=== PATIENT | female | born 1985 | race Two or more races ===

== ENCOUNTER 2018-12-03 12:10 | Observation (INO) | payer BC, SELFPAY ==
[2018-12-03 12:11] VITALS: BP 139/85; PULSE 105; RESP 18; TEMP 36.7; O2SAT 98; BMI 27.6
--- NOTE | 2018-12-03 12:35 | CT_ITS ---
STUDY: CTA OF THE BRAIN REASON FOR EXAM: Female, 33 years old. Migraine headaches. Anxiety. RADIATION DOSAGE (If Supplied By Facility): CTDIvol = ( 23.77 ) mGy, DLP = ( 1566.70 ) mGycm TECHNIQUE: CT angiography was performed with a multi-detector CT scanner. Data acquisition was obtained from the skull base through the vertex following intravenous administration of 100 IV Isovue 370. MIP images were reconstructed from the axial data set. Post-processing of the angiographic images was performed, with multiplanar reformation and 3D reconstruction. Individualized dose optimization techniques were used for this CT. COMPARISON: None. FINDINGS: Normal bilateral petrous carotid arteries. Normal right cavernous carotid artery with a normal supraclinoid bifurcation. Normal left cavernous carotid artery with a normal supraclinoid bifurcation. Normal right A1 segments of the anterior cerebral artery. Normal left A1 segments of the anterior cerebral artery. Normal intact anterior communicating artery (ACOM). Normal bilateral A2 segments of the anterior cerebral arteries. There is irregularity of the right M1 and M2 branches with minimal luminal narrowing, suggesting atherosclerotic plaque formation, without an occlusion. There is irregularity of the left M1 and M2 branches with minimal luminal narrowing, suggesting atherosclerotic plaque formation, without an occlusion. Normal right posterior communicating artery (PCOM). Normal left posterior communicating artery (PCOM). Normal bilateral vertebral arteries. Normal basilar artery with a normal basilar bifurcation. The visualized bilateral superior cerebellar (SCA) arteries are normal. Normal bilateral P1, P2 and visualized P3 segments of the posterior cerebral arteries. There is no demonstrated aneurysm of the [place]. There is no demonstrated abnormality of the visualized brain. CT/CTA Head W/WO Contrast IMPRESSION: Narrowing and irregularity seen involving the right and left M1 and M2 branches of the middle cerebral arteries. Electronically Signed: Cain Mccann, at 14:04 EDT , Service support ,
--- NOTE | 2018-12-03 12:35 | CT_ITS ---
STUDY: CTA NECK WITH CONTRAST REASON FOR EXAM: Female, 33 years old. History of migraine headaches and anxiety. RADIATION DOSAGE (If Supplied By Facility): CTDIvol = ( 23.77 ) mGy, DLP = ( 1566.7 ) mGycm TECHNIQUE: CT angiography with multi-detector data acquisition was performed from the aortic arch to the skull base following intravenous administration of 100 IV Isovue 370. MIP images were reconstructed from the axial data set. Post-processing of the angiographic images was performed, with multiplanar reformation and 3D reconstruction. Individualized dose optimization techniques were used for this CT. COMPARISON: None. FINDINGS: AORTIC ARCH: Normal visualized aortic arch. Normal origins of the brachiocephalic, left common carotid, and left subclavian arteries. RIGHT CAROTID ARTERIES: Normal right common carotid artery (CCA). Normal right common carotid bulb. Normal origin of the right internal carotid (ICA) artery without a hemodynamically significant stenosis. Normal visualized cervical portion of the right internal carotid artery. Normal origin of the right external carotid artery (ECA). LEFT CAROTID ARTERIES: Normal left common carotid artery (CCA). Normal left common carotid bulb. Normal origin of the left internal carotid (ICA) artery without a hemodynamically significant stenosis. Normal visualized cervical portion of the left internal carotid artery. Normal origin of the left external carotid artery (ECA). VERTEBRAL ARTERIES: There is enhancement within the bilateral vertebral arteries with a small left vertebral artery, and a dominant right vertebral artery. CT/CTA Neck W/WO Contrast IMPRESSION: Normal bilateral cervical carotid and vertebral arteries. Electronically Signed: Cain Mccann, at 14:26 EDT , Service support ,
[2018-12-03] MEDS: 0.9% Normal Saline 1,000 ML 1000 ML IV (13:01)
[2018-12-03] MEDS: DiphenhydrAMINE 50 MG/ML Syringe 25 MG IV (13:01)
[2018-12-03] MEDS: Metoclopramide 10 MG/2 ML Vial IV (13:01)
--- NOTE | 2018-12-03 14:46 | ED.VISSUMM ---
- ER Visit Summary Date of Service: 12/03/18 Chief Complaint: [Headache] History of Present Illness: The patient is a 33 F [presents the emergency room with a headache that started about an hour ago. Patient states the pain came on suddenly and was like a lightening bolt back of her head. Patient has intermittent sharp stabbing pains like a knife in the back of her head. Patient had some nausea but no vomiting. She does have some mild photophobia. Patient also states she had a headache yesterday felt more like a migraine. Patient patient denies any falls or head injuries. Patient is never had a headache like this before. And she rates it as a 6 or 7 out of 10. It was much worse initially. Patient has a family history of brain aneurysms and that her mother has had brain aneurysms.] Physical Examination: [HEENT-PERRLA, EOMI. Cranial nerves II through XII grossly intact. TMs clear. Mucous membranes moist. No adenopathy. Cardiovascular-regular rate and rhythm without murmur or ectopy Lungs-clear to auscultation, chest wall stable without crepitus or subcu emphysema Abdomen-normoactive bowel sounds, soft, nontender, no rebound or rigidity, no peritoneal signs. Neuro mlgg-[id number] and heel flores testing within normal limits, negative Romberg, negative pronator, fundi benign Extremities-intact ?4, normal range of motion, normal pulses, atraumatic] Test Results: [CTA of the brain obtained was read by radiology as narrowing and irregularity seen involving the right and left M1 and M2 branches of the middle cerebral arteries. No aneurysms noted. CTA of the neck was normal. Emergency Department Course and Treatment: [Patient was medicated with Reglan, and Benadryl, and normal saline. Patient had improvement in her headache and she currently describes it as mild. Case was discussed with neurology on-call Dr. Connors who recommended obtaining some blood work and admitting the patient for further work-up and evaluation given patient's young age there was concern as to whether or not the findings on the CTA represent atherosclerosis versus vasculitis.] Treatment Plan: [Admit] Disposition: [Admit] Impression: [Cephalgia] This note was generated with [employer] software. It may contain incorrect words, spelling, and punctuation that were not noted in review of the chart prior to signing ED Disposition - Plan for ED Patient: Referrals: Darien Fernandez MD [Primary Care Provider] -
--- NOTE | 2018-12-03 14:52 | ED.DCSUM_ITS ---
- ER Visit Summary Date of Service: 12/03/18 Chief Complaint: [Headache] History of Present Illness: The patient is a 33 F [presents the emergency room with a headache that started about an hour ago. Patient states the pain came on suddenly and was like a lightening bolt back of her head. Patient has inte rmittent sharp stabbing pains like a knife in the back of her head. Patient had some nausea but no vomiting. She does have some mild photophobia. Patient also states she had a headache yesterday felt more like a migraine. Patient patient denies any falls or head injuries. Patient is never had a headache like this before. And she rates it as a 6 or 7 out of 10. It was much worse initially. Patient has a family history of brain aneurysms and that her mother has had brain aneurysms.] Physical Examination: [HEENT-PERRLA, EOMI. Cranial nerves II through XII grossly intact. TMs clear. Mucous membranes moist. No adenopathy. Cardiovascular-regular rate and rhythm without murmur or ectopy Lungs-clear to auscultation, chest wall stable without crepitus or subcu em physema Abdomen-normoactive bowel sounds, soft, nontender, no rebound or rigidity, no peritoneal signs. Neuro xzoe-bgkvue-zilb and heel flores testing within normal limits, negative Romberg, negative pronator, fundi benign Extremities-intact ?4, normal range of motion, normal pulses, atraumatic] Test Results: [CTA of the brain obtained was read by radiology as narrowing and irregularity seen involving the right and left M1 and M2 branches of the middle cerebral arteries. No aneurysms noted. CTA of the neck was normal. Emergency Department Course and Treatment: [Patient was medicated with Reglan, and Benadryl, and normal saline. Patient had improvement in her headache and she currently describes it as mild. Case was discussed with neurology on-call Dr. Connors who recommended obtaining some blood work and admitting the patient for further work-up and evaluation given patient's young age there was concern as to whether or not the findings on the CTA represent atherosclerosis versus vasculitis.] Treatment Plan: [Admit] Disposition: [Admit] Impression: [Cephalgia] This note was generated with [employer] dictation software. It may contain incorrect words, spelling, and punctuation that were not noted in review of the chart prior to signing ED Disposition - Plan for ED Patient: Referrals: Darien Fernandez MD [Primary Care Provider] -
--- NOTE | 2018-12-03 14:56 | ED.RN ---
Addendum entered by Buffy Keller 12/03/18 14:57: [phone] Original Note: called pt's friend, Corrie, to inform of pt getting admitted to the hospital.
--- NOTE | 2018-12-03 15:00 | HP.PCM_ITS ---
Problem List (1) Headache Status: Acute History of Present Illness Date of Admission: 12/03/18 Chief Complaint: Headache The patient is a 33 year old F past medical history presents with headache that is started about an hour prior to her arrival to the ER. She states that she has a history of migraines but this is worse than any migraine she has had. Usually her migraines are in the front and throbbing. She was having intermittent stabbing pains in the back of her head and she was concerned because her family has a history of aneurysms in her mother and at one point one blood and then they found a second aneurysm that needed to be clipped. She did not have any auras or any visual issues during the headache just the severe pain. She denies any numbness, tingling, or weakness in her extremities. In the ER a CT of the head and neck was obtained that showed some irregularities and narrowing in the right and left M1 and M2 branches of the MCA, but no sign of a bleed or aneurysm. The ER discussed the case with neurology who would like the patient be admitted for observation to work-up for possible vasculitis. Vital signs are unremarkable and no lab work was completed in the ER prior to admission. Past Medical History Allergies No Known Allergies Allergy (Unverified 03/28/18 12:30) Home Medications: Ambulatory Orders Medication Instructions Recorded Qlaira 1 tab PO DAILY 12/03/18 Sumatriptan Succinate [Imitrex] 50 mg PO .X1 PRN 12/03/18 Surgical History: tonsillectomy Smoking Status: Never smoker Alcohol: None Drugs: None - *Family History Maternal History Items: Stroke - Hemorrhagic secondary to aneurysm, - - Cerebral aneurysm Paternal History Items: Heart Disease Review of Systems Constitutional: Denies: Chills, Fever, Weight Change HEENT: Reports: Head Aches. Denies: Sinus Congestion, Sinus Drainage Cardiovascular: Denies: Chest Pain, Palpitations Respiratory: Denies: Cough, Shortness of breath at rest, Sputum production Gastrointestinal: Denies: Abdominal Pain, Nausea, Vomiting Genitourinary: Denies: Dysuria Musculoskeletal: Denies: Joint Pain, Joint Tenderness Skin: Denies: Rash, Wounds Neurological: Denies: Numbness, Tingling, Focal weakness Psychiatric: Denies: Anxiety, Depression Hematologic/ Lymphatic: Denies: Easy Bruising, Easy Bleeding VTE Information - Inpt Only VTE Present on Admission: No Patient Problems: Active and Suspected Problems Headache (Acute) - Physical Exam General: Alert, Oriented x3, Cooperative, No apparent distress HEENT: Atraumatic, PERRLA, EOMI, Normocephalic Oral: Moist Mucosa Neck: Supple, No JVD Lungs: Clear to auscultation, Normal air movement, No rhonchi, No wheeze, No rales Cardiovascular: Regular rate, Regular Rhythm, Normal S1, Normal S2, No murmurs Abdomen: Soft, Non Tender, Non-Distended, No Hepato-splenomegaly Extremities: No edema, Capillary Refill Less than 3 Seconds Skin: No rashes, No breakdown Neurological: Neuro grossly intact, Sensory exam intact to light touch and pain Psych/Mental Status: Normal Affect, Appropriate Vital Signs Temp Pulse Resp BP Pulse Ox 98.1 F 105 H 18 139/85 H 98 12/03/18 12:11 12/03/18 12:11 12/03/18 12:11 12/03/18 12:11 12/03/18 12:11 Oxygen Delivery Method Room Air Weight: 171 lb 8.314 oz Body Mass Index (BMI) 27.6 Assessment/Plan All Active Problems Headache (Acute) Bedbug bite (Acute) 1. Significant headache with a history of migraines -Neurology is concerned with the possibility of a vasculitis -CTA of the head and neck showed irregularities and narrowing in the right and left M1 and M2 branch of the MCA -No signs of aneurysms or head bleed -Neurology will obtain further inflammatory labs, and a CBC, BMP, and ESR pen ding -Also will obtain an MRI -Neurology also plans on doing a trial of Depakote 500 mg IV every 8 as well as Decadron 4 mg IV every 6 -Plan will be for discharge if everything else is normal tomorrow DVT: Ambulation Code Visit OBSV E&M: 66340 Initial observation care L2
[2018-12-03 15:06] LABS: Absolute Lymphocyte Count 4.54 X10^3/ul (0.83-4.51); Absolute Neutrophil Count 3.8 X10^3/uL (2.0-7.7); Basophil# 0.02 X10^3/uL; Basophil% 0.2 % (0-1); Eosinophil# 0.04 X10^3/uL; Eosinophils% 0.4 % (0-5); Hematocrit 41.4 % (37-47); Hemoglobin 14.4 g/dl (12.0-15.0); Lymphocyte # 4.54 X10^3/ul (4.0); Lymphocyte % 49.7 % (19-41); Mean Corp Hgb Conc 34.8 g/gl (32-36); Mean Corpuscular Hgb 31.2 pg (27.0-32.0); Mean Corpuscular Volume 89.6 fL (81-99); Mean Platelet Vol. 9.4 fl (6.2-12.0); Monocyte# 0.72 X10^3/uL; Monocyte% 7.9 % (0-10); Neutrophil % 41.7 % (47-70); Platelet Count 301 K/mm3 (150-450); RBC Distribution Width CV 12.6 % (11.6-14.6); Red Blood Count 4.62 M/mm3 (4.2-5.4); White Blood Count 9.1 K/mm3 (4.4-11.0)
[2018-12-03 15:07] VITALS: BMI 27.7
[2018-12-03 15:07] LABS: POSITIVE COUNT NO; POSITIVE DIFFERENTIAL NO; POSITIVE MORPHOLOGY NO
--- NOTE | 2018-12-03 15:17 | CON.PCM_ITS ---
Problem List (1) Headache Status: Acute Reason for Consult Date of Consultation: 12/03/18 Reason for Consultation: Headache History of Present Illness: The patient is a 33 year old F with PMH migraines admitted with headache. Per patient she started having her headache this afternoon 12/03/2018, with a sharp stabbing in the occipital region lasting hours, was different from her usual migraine headaches. Per patient when she gets her migraine headaches its generalized, on the vertex, about once a month, lasting hours, associated with photophobia and phonophobia, without any visual aura, does complain of nausea, has been on as needed medication probably Imitrex per patient. At present patient denies any speech disturbances, visual disturbances, focal motor weakness, sensory loss or dizziness. CTA head/neck done on admission reported to show irregularity of the right M1 and M2 branches with minimal luminal narrowing, suggesting atherosclerotic plaque formation without any occlusion, and also irregularity in the left M1 and M2 branches of the minimal luminal narrowing suggesting atherosclerotic plaque formation without any occlusion. [] Past Medical History Allergies No Known Allergies Allergy (Unverified 03/28/18 12:30) Home Medications: Ambulatory Orders Medication Instructions Recorded Qlaira 1 tab PO DAILY 12/03/18 Sumatriptan Succinate [Imitrex] 50 mg PO .X1 PRN 12/03/18 Lives: Alone Smoking Status: Never smoker Tobacco Use: Non-smoker Alcohol: Rare, Sober Drugs: None Review of Systems Constitutional: Reports: - - Complete ROS negative except as documented in HPI Patient Problems: Active and Suspected Problems Headache (Acute) - Physical Exam General: Alert HEENT: Normocephalic Neck: Supple Lungs: Normal air movement Cardiovascular: Normal S1, Normal S2 Abdomen: Bowel Sounds Present Extremities: No cyanosis Neurological: - - Conscious, alert, CN II to XII grossly intact, power 5/5 all 4 extremities, no sensory loss, no cerebellar signs, reflexes+ B/L B/S/T/K/A, gait deferred, no NR, fundus not visualized Psych/Mental Status: Normal Affect Vital Signs Temp Pulse Resp BP Pulse Ox 98.1 F 105 H 18 139/85 H 98 12/03/18 12:11 12/03/18 12:11 12/03/18 12:11 12/03/18 12:11 12/03/18 12:11 Oxygen Delivery Method Room Air Weight: 77.8 kg Body Mass Index (BMI) 27.6 Laboratory Tests Past 24 Hrs 12/03/18 12/03/18 12:47 12:47 WBC 9.1 RBC 4.62 Hgb 14.4 Hct 41.4 MCV 89.6 MCH 31.2 MCHC 34.8 RDW 12.6 RDW Differential 41.0 Plt Count 301 MPV 9.4 Immature Gran % (Auto) 0.100 Neut % (Auto) 41.7 L Lymph % (Auto) 49.7 H Victoria % (Auto) 7.9 Eos % (Auto) 0.4 Baso % (Auto) 0.2 Absolute Neuts (auto) 3.8 Absolute Lymphs (auto) 4.54 H Total Counted Not Reportable ESR Pending Sodium Pending Potassium Pending Chloride Pending Carbon Dioxide Pending Anion Gap Pending BUN Pending Creatinine Pending Est GFR (MDRD) Af Amer Pending Est GFR (MDRD) Non-Af Pending BUN/Creatinine Ratio Pending Glucose Pending Calcium Pending Total Bilirubin Pending AST Pending ALT Pending Alkaline Phosphatase Pending Total Protein Pending Albumin Pending Assessment/Plan All Active Problems Headache (Acute) Bedbug bite (Acute) The patient is a 33 year old F with PMH migraines admitted with headache. Per patient she started having her headache this afternoon 12/03/2018, with a sharp stabbing in the occipital region lasting hours, was different from her usual migraine headaches. Per patient when she gets her migraine headaches its generalized, on the vertex, about once a month, lasting hours, associated with photophobia and phonophobia, without any visual aura, does complain of nausea, has been on as needed medication probably Imitrex per patient. At present patient denies any speech disturbances, visual disturbances, focal motor weakness, sensory loss or dizziness. CTA head/neck done on admission reported to show irregularity of the right M1 and M2 branches with minimal luminal narrowing, suggesting atherosclerotic plaque formation without any occlusion, and also irregularity in the left M1 and M2 branches of the minimal luminal marlon rowing suggesting atherosclerotic plaque formation without any occlusion. Impression Headache?change in characteristics from her migraine headaches per patient Possible status migrainosus Plan ?Check MRI brain without contrast ?ESR, CRP, JARED, ANCA. ?Trial of Depacon 500 mg IV every 8 hourly for 24 to 48 hours and then stop ?Trial of Decadron 4 mg IV every 6 hourly for 24 to 48 hours and then stop ?Magnesium sulfate 1 g IV once ?Trial of Toradol 30 mg IV every 6 hourly as needed moderate to severe headache, for 24 hours and then stop. ?GI/DVT prophylaxis ?Fall precautions ?Further medical management per hospitalist team ?Please call with questions if any ?Follow-up with neurology as outpatient in 6 weeks ?Thank you for allowing us to participate in patient's current management Code Visit Inpatient E&M: 10915 Init Hosp L3
--- NOTE | 2018-12-03 15:24 | MRI_ITS ---
STUDY: MRI BRAIN WITHOUT CONTRAST REASON FOR EXAM: Female, 33 years old. Headache TECHNIQUE: Standardized multiplanar fat and water weighted pulse sequences were obtained. COMPARISON: CT head same day. FINDINGS: Normal size of the ventricles and extra-axial spaces for the patient's age. Normal white matter tracts of the supratentorial brain. Normal bilateral basal ganglia. Normal thalami. There is no extra-axial fluid accumulation. The diffusion-weighted sequence is normal. Normal flow voids within the major intracranial circulation suggesting patency by spin echo criteria. Normal sella turcica, pituitary gland, infundibular stalk, optic chiasm and hypothalamus. Normal tectal plate and pineal gland. Normal midbrain, christel and medulla. Normal cerebellum. Normal basal cisterns. Normal bilateral temporal bones. Normal bilateral internal auditory canals. No demonstrated orbital abnormality, within the constraints of a routine brain study. Normal visualized paranasal sinuses. Normal calvarium and skull base. Normal visualized soft tissue structures. Normal visualized upper cervical spine. MRI/Brain without Contrast IMPRESSION: Normal unenhanced MRI of the brain. Electronically Signed: Rufus Hunt, at 0:10 EDT Tel , Service support ,
[2018-12-03 15:26] VITALS: BP 123/90; PULSE 89; RESP 17; O2SAT 97
[2018-12-03 15:30] LABS: AST(SGOT) 16 U/L (15-37); Alanine Aminotransfer ALT/SGPT 29 U/L (13-56); Alkaline Phosphatase 64 U/L (45-117); Anion Gap 11 (5-15); BUN 9 mg/dL (7-18); BUN/Creat Ratio 11.8 RATIO (10-20); Calcium,Total 8.6 mg/dL (8.5-10.1); Chloride 107 mmol/L (98-107); Creatinine, Serum 0.76 mg/dL (0.55-1.02); EST Glomerular Filtration Rate 91 mL/min (>60); Est Glom Filt Rate - Afr Amer 110 mL/min (>60); Estimated Creatinine Clearance 96.72 ml/min; Globulin 4.1 g/dL (2.2-4.2); Glucose 106 mg/dL (74-106); Potassium 3.3 mmol/L (3.5-5.1); Protein, Total 8.1 g/dL (6.4-8.2); Sodium Level 141 mmol/L (136-145)
[2018-12-03 15:35] LABS: Erythrocyte Sedimentation Rate 10 mm/hr (0-20)
[2018-12-03 16:02] LABS: Erythrocyte Sedimentation Rate 2 mm/hr (0-20)
[2018-12-03 16:04] LABS: CRP 3.78 mg/L (0.0-3.0); Rheumatoid Factor < 10.0 IU/mL (<15)
[2018-12-03 16:05] VITALS: BMI 27.3
[2018-12-03 16:06] VITALS: BP 124/84; PULSE 83; RESP 14; TEMP 37.1; O2SAT 98
[2018-12-03] MEDS: Magnesium Sulfate 1 GM in 0.9% Normal Saline 100 ML IV (19:13)
[2018-12-03] MEDS: 0.9% NaCl Peripheral Flush Adult/Peds IV (19:14)
[2018-12-03] MEDS: 0.9% Normal Saline 1,000 ML 100 ML IV (19:14)
[2018-12-03] MEDS: dexAMETHasone 4 MG/ML Vial IV (21:04)
[2018-12-03 22:00] VITALS: BP 127/81; PULSE 96; RESP 16; TEMP 36.9; O2SAT 98
[2018-12-04] MEDS: dexAMETHasone 4 MG/ML Vial IV ×3 (00:33→11:18)
[2018-12-04 04:00] VITALS: BP 109/74; PULSE 82; RESP 16; TEMP 36.9; O2SAT 100
[2018-12-04 06:02] LABS: Absolute Lymphocyte Count 1.25 X10^3/ul (0.83-4.51); Absolute Neutrophil Count 3.8 X10^3/uL (2.0-7.7); Hematocrit 42.6 % (37-47); Hemoglobin 14.8 g/dl (12.0-15.0); Lymphocyte # 1.25 X10^3/ul (4.0); Lymphocyte % 24.6 % (19-41); Mean Corp Hgb Conc 34.7 g/gl (32-36); Mean Corpuscular Volume 89.3 fL (81-99); Mean Platelet Vol. 9.6 fl (6.2-12.0); Monocyte# 0.05 X10^3/uL; Neutrophil # 3.79 X10^3/uL (2.7-7.7); Neutrophil % 74.4 % (47-70); Platelet Count 278 K/mm3 (150-450); RBC Distribution Width CV 12.3 % (11.6-14.6); RBC Distribution Width SD 40.1 fl (35.1-43.9); Red Blood Count 4.77 M/mm3 (4.2-5.4); White Blood Count 5.1 K/mm3 (4.4-11.0)
[2018-12-04 06:07] LABS: POSITIVE COUNT NO; POSITIVE DIFFERENTIAL NO; POSITIVE MORPHOLOGY NO
[2018-12-04] MEDS: 0.9% Normal Saline 1,000 ML 100 ML IV (06:07)
[2018-12-04 06:08] LABS: Anion Gap 10 (5-15); BUN 8 mg/dL (7-18); BUN/Creat Ratio 9.9 RATIO (10-20); Calcium,Total 8.5 mg/dL (8.5-10.1); Chloride 108 mmol/L (98-107); EST Glomerular Filtration Rate 86 mL/min (>60); Est Glom Filt Rate - Afr Amer 104 mL/min (>60); Estimated Creatinine Clearance 91.88 ml/min; Glucose 135 mg/dL (74-106); Potassium 4.3 mmol/L (3.5-5.1); Sodium Level 139 mmol/L (136-145)
--- NOTE | 2018-12-04 09:27 | PN.NEURO_ITS ---
Subjective: No issues overnight. Denies any REYES at present. Care discussed with hospitalist taking care of the patient - Physical Exam General: Alert HEENT: Normocephalic Neck: Supple Lungs: Normal air movement Cardiovascular: Normal S1, Normal S2 Abdomen: Bowel Sounds Present Extremities: No cyanosis Neurological: - - Conscious, alert, CN II to XII grossly intact, power 5/5 all 4 extremities, no sensory loss, no cerebellar signs, reflexes+ B/L B/S/T/K/A, gait deferred, no NR, fundus not visualized Psych/Mental Status: Normal Affect Vital Signs Temp Pulse Resp BP Pulse Ox 98.4 F 82 16 109/74 100 12/04/18 04:00 12/04/18 04:00 12/04/18 04:00 12/04/18 04:00 12/04/18 04:00 Oxygen Delivery Method Room Air Weight: 77.111 kg Body Mass Index (BMI) 27.3 Intake and Output for Last 24 Hours 12/02/18 12/03/18 12/04/18 23:59 23:59 23:59 Intake Total 1987 Balance 1987 Laboratory Tests Past 24 Hrs 12/03/18 12/03/18 12/03/18 12:47 12:47 15:35 WBC 9.1 RBC 4.62 Hgb 14.4 Hct 41.4 MCV 89.6 MCH 31.2 MCHC 34.8 RDW 12.6 RDW Differential 41.0 Plt Count 301 MPV 9.4 Immature Gran % (Auto) 0.100 Neut % (Auto) 41.7 L Lymph % (Auto) 49.7 H [place] % (Auto) 7.9 Eos % (Auto) 0.4 Baso % (Auto) 0.2 Absolute Neuts (auto) 3.8 Absolute Lymphs (auto) 4.54 H Total Counted Not Reportable ESR 10 2 Sodium 141 Potassium 3.3 L Chloride 107 Carbon Dioxide 23.0 Anion Gap 11 BUN 9 Creatinine 0.76 Estim Creat Clear Calc 96.72 Est GFR (MDRD) Af Amer 110 Est GFR (MDRD) Non-Af 91 BUN/Creatinine Ratio 11.8 Glucose 106 Calcium 8.6 Total Bilirubin 0.40 AST 16 ALT 29 Alkaline Phosphatase 64 C-React Prot Ext Range Total Protein 8.1 Albumin 4.0 Globulin 4.1 Albumin/Globulin Ratio 1.0 Rheumatoid Factor JARED Screen c-ANCA Antibody p-ANCA Antibody GRADY-1 Antibody SS-A/Ro IgG Antibody SS-B/La IgG Antibody Sm (Wells) Antibody SUP[employer]Y AND DISTRIBUTION MANAGER Antibody Scl-70 Scleroderma Ab Double Strand DNA Ab Centromere B Antibody 12/03/18 12/03/18 12/03/18 15:35 15:35 15:35 WBC RBC Hgb Hct MCV MCH MCHC RDW RDW Differential Plt Count MPV Immature Gran % (Auto) Neut % (Auto) Lymph % (Auto) [place] % (Auto) Eos % (Auto) Baso % (Auto) Absolute Neuts (auto) Absolute Lymphs (auto) Total Counted ESR Sodium Potassium Chloride Carbon Dioxide Anion Gap BUN Creatinine Estim Creat Clear Calc Est GFR (MDRD) Af Amer Est GFR (MDRD) Non-Af BUN/Creatinine Ratio Glucose Calcium Total Bilirubin AST ALT Alkaline Phosphatase C-React Prot Ext Range 3.78 H Total Protein Albumin Globulin Albumin/Globulin Ratio Rheumatoid Factor < 10.0 JARED Screen Pending c-ANCA Antibody Pending p-ANCA Antibody Pending GRADY-1 Antibody Pending SS-A/Ro IgG Antibody Pending SS-B/La IgG Antibody Pending Sm (Wells) Antibody Pending SUPPLY AND DISTRIBUTION MANAGER Antibody Pending Scl-70 Scleroderma Ab Pending Double Strand DNA Ab Pending Centromere B Antibody Pending 12/04/18 12/04/18 05:20 05:20 WBC 5.1 RBC 4.77 Hgb 14.8 Hct 42.6 MCV 89.3 MCH 31.0 MCHC 34.7 RDW 12.3 RDW Differential 40.1 Plt Count 278 MPV 9.6 Immature Gran % (Auto) 0.000 Neut % (Auto) 74.4 H Lymph % (Auto) 24.6 [place] % (Auto) 1.0 Eos % (Auto) 0.0 Baso % (Auto) 0.0 Absolute Neuts (auto) 3.8 Absolute Lymphs (auto) 1.25 Total Counted Not Reportable ESR Sodium 139 Potassium 4.3 Chloride 108 H Carbon Dioxide 21.0 Anion Gap 10 BUN 8 Creatinine 0.80 Estim Creat Clear Calc 91.88 Est GFR (MDRD) Af Amer 104 Est GFR (MDRD) Non-Af 86 BUN/Creatinine Ratio 9.9 L Glucose 135 H Calcium 8.5 Total Bilirubin AST ALT Alkaline Phosphatase C-React Prot Ext Range Total Protein Albumin Globulin Albumin/Globulin Ratio Rheumatoid Factor JARED Screen c-ANCA Antibody p-ANCA Antibody GRADY-1 Antibody SS-A/Ro IgG Antibody SS-B/La IgG Antibody Sm ([place]) Antibody SUPPLY AND DISTRIBUTION MANAGER Antibody Scl-70 Scleroderma Ab Double Strand DNA Ab Centromere B Antibody Medical Necessity - Tobacco Use Smoking Status: Never smoker Tobacco Use: Non-smoker Assessment/Plan All Active Problems Headache (Acute) Bedbug bite (Acute) The patient is a 33 year old F with PMH migraines admitted with headache. Per patient she started having her headache the afternoon of 12/03/2018, with a sharp stabbing in the occipital region lasting hours, was different from her usual migraine headaches. Per patient when she gets her migraine headaches its generalized, on the vertex, about once a month, lasting hours, associated with photophobia and phonophobia, without any visual aura, does complain of nausea, h as been on as needed medication probably Imitrex per patient. At present patient denies any speech disturbances, visual disturbances, focal motor weakness, sensory loss or dizziness. CTA head/neck done on admission reported to show irregularity of the right M1 and M2 branches with minimal luminal narrowing, suggesting atherosclerotic plaque formation without any occlusion, and also irregularity in the left M1 and M2 branches of the minimal luminal narrowing suggesting atherosclerotic plaque formation without any occlusion. Impression Headache?change in characteristics from her migraine headaches per patient- resolved at present Possible status migrainosus Plan ?MRI brain without contrast-negative ?ESR-2, CRP-3.78, RF <10, JARED-p, ANCA-p. -On Imitrex PRN ?GI/DVT prophylaxis ?Fall precautions ?Further medical management per hospitalist team ?Please call with questions if any ?Follow-up with neurology as outpatient in 6 weeks ?Thank you for allowing us to participate in patient's current management
[2018-12-04 09:55] VITALS: BP 124/82; PULSE 97; RESP 14; TEMP 36.6; O2SAT 98
--- NOTE | 2018-12-04 10:14 | DCINST_ITS ---
- Discharge Diagnoses Current Active Problems: Current Active and Chronic Problems Headache (Acute) You will use the following diet at home:: No restrictions Your food should be the consistency of: Regular Discharge Activity: Return to Normal Activity Weight Bearing Status: Weight bearing as tolerated Call your doctor if you observe: - - worsening headache Instructions: Migraines and Cluster Headaches, Preventing Migraine Headaches: Triggers, Preventing Migraine Headaches: Medications and Lifestyle Changes, Migraine Headache: Stages and Treatment, Understanding Headache Pain Additional Instructions: stop taking oral contraceptive pills. Allergies/Adverse Reactions: Allergies No Known Allergies Allergy (Unverified 03/28/18 12:30) Medications to take at Discharge Sumatriptan Succinate [Imitrex] 50 mg PO .X1 PRN 12/03/18 Primary Care Physician: Darien Fernandez MD [Primary Care Provider] - Please follow up with your Primary Care Physician in: one week Test Results: Test results from this visit will be discussed in further detail at your follow- up appointment, if applicable. Please Follow Up With: Yaw Cononrs MD When: 6 weeks Please Follow Up With: Eleanor Foley MD When: 2-3 weeks; for PCOS and for new control prescription Proposed Discharge Date: 12/04/18
--- NOTE | 2018-12-04 10:14 | PCM.DC.SUM ---
Discharge Date and Diagnosis - Problem List Patient Problems: Active and Suspected Problems Headache (Acute) Date of Admission: 12/03/18 Date of Discharge: 12/04/18 - Primary Discharge Diagnosis Active and Suspected Problems Headache (Acute) Hospital Course and Treatment Imaging Results: Diagnostic Data Head CTA 12/03/18 12:35 IMPRESSION: Narrowing and irregularity seen involving the right and left M1 and M2 branches of the middle cerebral arteries. Electronically Signed: Cain Mccann, at 14:04 EDT , Service support , Neck CTA 12/03/18 12:35 IMPRESSION: Normal bilateral cervical carotid and vertebral arteries. Electronically Signed: Cain Mccann, at 14:26 EDT , Service support , Brain MRI 12/03/18 15:24 IMPRESSION: Normal unenhanced MRI of the brain. Electronically Signed: Rufus Hunt, at 0:10 EDT Tel , Service support , neurology- Dr Connors Operations: None Procedures: None Summary of Care Provided: The patient is a 33 year old F with a past medical history significant for migraine headaches and polycystic ovarian syndrome. She was admitted through the ED on 12/04/2018 with complaint of severe headache which was located at the back of her head. She described as the worst headache of her life. It was not similar to previous migraines that she had had which are usually frontal and throbbing. She was concerned because her family had a history of aneurysms and her mother had had an aneurysm bleed and had another one clipped as well. She did not have any other neurologic deficits. Urology was consulted. CT of the head and neck done in the ED showed some irregularities and narrowing in the right and left M1 and M2 branches of the MCA which was thought to be due to possible atherosclerotic plaque but no evidence of a bleed or aneurysm. She had an MRI of the brain which was normal. Patient remained stable and headache resolved. Patient had been on oral contraceptives to assess for PCO S. This was discontinued as it will contribute to severe migraine headaches. Patient remained stable and was discharged on 12/04/2018. She is to follow-up with neurology in about 6 weeks time. She is also to follow-up with gynecology for recommendation about a new control method that would help with her PCOS but hopefully not cause severe headaches. She is to follow-up with neurology for results of her work-up for vasculitis which was still pending at time of discharge. Rheumatoid factor was negative at less than 10. Patient seen and examined prior to discharge. She had no complaints. Headache had resolved. Review of systems otherwise negative. Labs and vitals reviewed. Home medication reviewed and reconciled. Patient Problems: Active and Suspected Problems Headache (Acute) - Physical Exam General: Alert, Oriented x3, Cooperative, No apparent distress HEENT: Atraumatic, PERRLA, EOMI, Normocephalic Oral: Moist Mucosa Neck: Supple, No JVD, Negative Carotid Bruits Lungs: Clear to auscultation, Normal air movement, No rhonchi, No wheeze, No rales Cardiovascular: Regular rate, Regular Rhythm, Normal S1, Normal S2, No murmurs Abdomen: Bowel Sounds Present, Soft, Non Tender, Non-Distended, No Hepato-splenomegaly Extremities: No clubbing, No cyanosis, No edema, Capillary Refill Less than 3 Seconds Skin: No rashes, No breakdown Musculoskeletal: No Tenderness to Palpation of Joints or Extremities Lymphatic: No Cervical, Supraclavicular, or Inguinal Adenopathy Neurological: Cranial nerves II-XII grossly intact, Neuro grossly intact, Motor Exam 5/5 strength throughout Psych/Mental Status: Normal Affect, Appropriate, Alert and oriented to time, place, person, mood and affect Vital Signs Temp Pulse Resp BP Pulse Ox 98 F 97 14 124/82 H 98 12/04/18 09:55 12/04/18 09:55 12/04/18 09:55 12/04/18 09:55 12/04/18 09:55 Oxygen Delivery Method Room Air Weight: 170 lb Body Mass Index (BMI) 27.3 Intake and Output for Last 24 Hours 12/02/18 12/03/18 12/04/18 23:59 23:59 23:59 Intake Total 1987 Balance 1987 Laboratory Tests Past 24 Hrs 12/03/18 12/03/1819 12:47 12:47 15:35 WBC 9.1 RBC 4.62 Hgb 14.4 Hct 41.4 MCV 89.6 MCH 31.2 MCHC 34.8 RDW 12.6 RDW Differential 41.0 Plt Count 301 MPV 9.4 Immature Gran % (Auto) 0.100 Neut % (Auto) 41.7 L Lymph % (Auto) 49.7 H [place] % (Auto) 7.9 Eos % (Auto) 0.4 Baso % (Auto) 0.2 Absolute Neuts (auto) 3.8 Absolute Lymphs (auto) 4.54 H Total Counted Not Reportable ESR 10 2 Sodium 141 Potassium 3.3 L Chloride 107 Carbon Dioxide 23.0 Anion Gap 11 BUN 9 Creatinine 0.76 Estim Creat Clear Calc 96.72 Est GFR (MDRD) Af Amer 110 Est GFR (MDRD) Non-Af 91 BUN/Creatinine Ratio 11.8 Glucose 106 Calcium 8.6 Total Bilirubin 0.40 AST 16 ALT 29 Alkaline Phosphatase 64 C-React Prot Ext Range Total Protein 8.1 Albumin 4.0 Globulin 4.1 Albumin/Globulin Ratio 1.0 Rheumatoid Factor JARED Screen c-ANCA Antibody p-ANCA Antibody GRADY-1 Antibody SS-A/Ro IgG Antibody SS-B/La IgG Antibody Sm (Wells) Antibody ELECT[employer]IC WELL LOGGING OPERATOR Antibody Scl-70 Scleroderma Ab Double Strand DNA Ab Centromere B Antibody 12/03/18 12/03/18 12/03/18 15:35 15:35 15:35 WBC RBC Hgb Hct MCV MCH MCHC RDW RDW Differential Plt Count MPV Immature Gran % (Auto) Neut % (Auto) Lymph % (Auto) [place] % (Auto) Eos % (Auto) Baso % (Auto) Absolute Neuts (auto) Absolute Lymphs (auto) Total Counted ESR Sodium Potassium Chloride Carbon Dioxide Anion Gap BUN Creatinine Estim Creat Clear Calc Est GFR (MDRD) Af Amer Est GFR (MDRD) Non-Af BUN/Creatinine Ratio Glucose Calcium Total Bilirubin AST ALT Alkaline Phosphatase C-React Prot Ext Range 3.78 H Total Protein Albumin Globulin Albumin/Globulin Ratio Rheumatoid Factor < 10.0 JARED Screen Pending c-ANCA Antibody Pending p-ANCA Antibody Pending GRADY-1 Antibody Pending SS-A/Ro IgG Antibody Pending SS-B/La IgG Antibody Pending Sm (Wells) Antibody Pending ELECTRIC WELL LOGGING OPERATOR Antibody Pending Scl-70 Scleroderma Ab Pending Double Strand DNA Ab Pending Centromere B Antibody Pending 12/04/18 12/04/18 05:20 05:20 WBC 5.1 RBC 4.77 Hgb 14.8 Hct 42.6 MCV 89.3 MCH 31.0 MCHC 34.7 RDW 12.3 RDW Differential 40.1 Plt Count 278 MPV 9.6 Immature Gran % (Auto) 0.000 Neut % (Auto) 74.4 H Lymph % (Auto) 24.6 [place] % (Auto) 1.0 Eos % (Auto) 0.0 Baso % (Auto) 0.0 Absolute Neuts (auto) 3.8 Absolute Lymphs (auto) 1.25 Total Counted Not Reportable ESR Sodium 139 Potassium 4.3 Chloride 108 H Carbon Dioxide 21.0 Anion Gap 10 BUN 8 Creatinine 0.80 Estim Creat Clear Calc 91.88 Est GFR (MDRD) Af Amer 104 Est GFR (MDRD) Non-Af 86 BUN/Creatinine Ratio 9.9 L Glucose 135 H Calcium 8.5 Total Bilirubin AST ALT Alkaline Phosphatase C-React Prot Ext Range Total Protein Albumin Globulin Albumin/Globulin Ratio Rheumatoid Factor JARED Screen c-ANCA Antibody p-ANCA Antibody GRADY-1 Antibody SS-A/Ro IgG Antibody SS-B/La IgG Antibody Sm (Wells) Antibody ELECTRIC WE[employer] LOGGING OPERATOR Antibody Scl-70 Scleroderma Ab Double Strand DNA Ab Centromere B Antibody Discharge Diet: No Restrictions Discharge Activity: Return to Normal Activity Weight Bearing Status: Weight bearing as tolerated Call your doctor if you observe: - - worsening headache Home Medications: Medications to take at Discharge Sumatriptan Succinate [Imitrex] 50 mg PO .X1 PRN 12/03/18 Primary Care Physician: Darien Fernandez MD [Primary Care Provider] - Please follow up with your Primary Care Physician in: one week Please Follow Up With: Yaw Connors MD When: 6 weeks Please Follow Up With: Eleanor Foley MD When: 2-3 weeks; for PCOS and for new control prescription Patient Instructions: Migraines and Cluster Headaches, Understanding Headache Pain, Migraine Headache: Stages and Treatment, Preventing Migraine Headaches: Triggers, Preventing Migraine Headaches: Medications and Lifestyle Changes Disposition: Home Minutes spent on discharge:: 35 Patient Condition:: Stable Medical Necessity - Tobacco Use Smoking Status: Never smoker Tobacco Use: Non-smoker Meaningful Use Info Meaningful Use Diagnoses (Choose all that apply): None applicable Code Visit Inpatient E&M: 10129 Disch Hosp
[2018-12-04] MEDS: 0.9% NaCl Peripheral Flush Adult/Peds IV (11:18)
[2018-12-04 12:29] VITALS: BP 133/82; PULSE 100; RESP 16; TEMP 36.8; O2SAT 100
[2018-12-05 13:12] LABS: ANTINUCLEAR ANTIBODIES DIRECT Negative (Negative)
[2018-12-05 20:07] LABS: Cytoplasmic Ab (C-ANCA) <1:20 titer (Neg:<1:20)
[2018-12-06 08:31] LABS: Perinuclear Ab (P-ANCA) <1:20 titer (Neg:<1:20)
== END 2018-12-04 12:36 | disposition home or self-care (01) ==
LOC: ED 12:54 → MS2 15:25
PROVIDERS: Psychiatry & Neurology Neurology; Admitting Provider Family Medicine; Emergency Provider Emergency Medicine; Family Provider Internal Medicine; PCP Internal Medicine; Referring Provider Family Medicine; Visit Provider Student in an Organized Health Care Education/Training Program
DX: G43.909 Migraine, unspecified, not intractable, without status migrainosus (principal); Z79.899 Other long term (current) drug therapy
CPT/HCPCS: 36415; 70496; 70498; 70551; 80048; 80053; 85025; 85652; 86038; 86140; 86225; 86235; 86256; 86431; 96361; 96365; 96366; 96375; 96376; 99218; 99285; J7030; J7040; Q9967; A4216; G0378

== ENCOUNTER → 2019-01-23 16:15 | Outpatient (CLI) | payer BC, SELFPAY ==
[2019-01-23 14:00] VITALS: BMI 27.3
[2019-01-29 14:06] LABS: HPV APTIMA, High Risk Negative (Negative)
== END ==
PROVIDERS: Family Provider Internal Medicine; PCP Internal Medicine; Referring Provider Obstetrics & Gynecology; Visit Provider Obstetrics & Gynecology
DX: Z12.4 Encounter for screening for malignant neoplasm of cervix (principal)
CPT/HCPCS: 87624; 88175; G0145